=== PATIENT | male | born 1955 | race Caucasian/White ===

== ENCOUNTER 2021-01-25 04:19 | Inpatient (IN) | payer BC, MEDICARE ==
[~2021-01-25] VITALS: Ht 180.3 cm; Wt 74.8 kg
[2021-01-25] MEDS ORDERED: IV NS 0.9% 500 ML BAG IV ONE (04:30)
--- NOTE | 2021-01-25 04:30 | NUR ---
[id number]. SYNCOPAL EPISODE, NEW ONSET AFIB, HEAD TRAUMA W/ LACERATION LIP ABRASION. PT ALERT AND ORIENTED X3. AMBULATORY WITH NON LABORED BREATHING. PATIENT PLACED ON A MONITOR.
--- NOTE | 2021-01-25 04:35 | NUR ---
BLOOD COLLECTED AND SENT TO LAB
--- NOTE | 2021-01-25 04:36 | NUR ---
URINE COLLECTED AND SENT TO LAB
[2021-01-25 04:44] LABS: BASOPHILS % (AUTO) 0.3 % (0.0-2.0); EOSINOPHILS % (AUTO) 3.6 % (0.0-6.0); HEMATOCRIT 40 % (39-51); HEMOGLOBIN 13.6 g/dL (13.5-17.5); LYMPHOCYTES # (AUTO) 2.4 K/uL (0.8-4.8); LYMPHOCYTES % (AUTO) 28.7 % (20.0-44.0); MEAN CORPUSCULAR HGB CONC 34 g/dl (31.0-36.0); MEAN CORPUSCULAR VOLUME 89 fL (80-96); MONOCYTES # (AUTO) 0.5 K/uL (0.1-1.30); MONOCYTES % (AUTO) 6.4 % (2.0-12.0); NEUTROPHILS # (AUTO) 5.2 K/uL (1.8-8.9); PLATELET COUNT (AUTO) 206 K/uL (150-450); RED BLOOD CELL COUNT(AUTO) 4.43 MIL/uL (4.5-6.0); WHITE BLOOD COUNT (AUTO) 8.5 K/uL (4.3-11.0)
--- NOTE | 2021-01-25 04:54 | NUR ---
PATIENT GOING TO CT
[2021-01-25] MEDS ORDERED: TDAP [DIPH/PERTUSSIS/TET] 0.5 ML VIAL IM ONE ×2 (05:00→05:05)
--- NOTE | 2021-01-25 05:01 | NUR ---
PT BACK FROM CT
[2021-01-25 05:03] LABS: ALANINE AMINOTRANSFERASE 32 U/L (12-78); ALBUMIN 3.8 g/dL (3.4-5.0); ALKALINE PHOSPHATASE 86 U/L (46-116); ASPARTATE AMINOTRANSFERASE 23 U/L (15-37); BILIRUBIN,DIRECT 0.1 mg/dL (0.0-0.2); BILIRUBIN,TOTAL 0.4 mg/dL (0.2-1.0); CALCIUM, SERUM 8.9 mg/dL (8.5-10.1); CARBON DIOXIDE 26 mmol/L (21-32); CHLORIDE 105 mmol/L (98-107); CREATININE 1.3 mg/dL (0.6-1.3); GLUCOSE 157 mg/dL (74-106); POTASSIUM 3.3 mmol/L (3.5-5.1); SODIUM SERUM 141 mmol/L (136-145); TOTAL PROTEIN, SERUM 7.2 g/dL (6.4-8.2); UREA NITROGEN, BLOOD 24 mg/dL (7-18)
[2021-01-25] MEDS ORDERED: ASPIRIN 325 MG TABLET ONE (05:26)
[2021-01-25] MEDS ORDERED: ASPIRIN 325 MG TABLET PO ONE (05:30)
[2021-01-25] MEDS ORDERED: ZOLPIDEM TARTRATE 5 MG TABLET PO PRN (07:00)
[2021-01-25] MEDS ORDERED: IV NS 0.9% 1,000 ML IV ONE (07:00)
[2021-01-25] MEDS ORDERED: Z GUARD REMEDY 2 OZ OINT TP PRN (07:00)
[2021-01-25] MEDS ORDERED: MAG HYDROX/AL HYDROX/SIMETH 30 ML UDC PO PRN (07:00)
[2021-01-25] MEDS ORDERED: ACETAMINOPHEN 325 MG TABLET PO PRN (07:00)
[2021-01-25] MEDS ORDERED: ONDANSETRON HCL/PF 4 MG/2 ML VIAL IVP PRN (07:00)
[2021-01-25] MEDS ORDERED: MAGNESIUM HYDROXIDE 30 ML UDC PO PRN (07:00)
[2021-01-25] MEDS ORDERED: POTASSIUM CHLORIDE 20 MEQ TAB.PRT.SR PO ONE (07:30)
[2021-01-25] MEDS ORDERED: GINKGO (07:41)
[2021-01-25] MEDS ORDERED: IRBE150T28 PO (07:41)
[2021-01-25] MEDS ORDERED: LYSINE (07:41)
[2021-01-25] MEDS ORDERED: HYDR12.55 PO (07:41)
--- NOTE | 2021-01-25 08:10 | NUR ---
Room 323-1
--- NOTE | 2021-01-25 08:51 | NUR ---
REPORT GIVEN TO NURSE METCALF
--- NOTE | 2021-01-25 09:10 | NUR ---
THE PATIENT IS TRANSFERED TO ROOM 323-1 IN STABLE CONDITION AND PER POLICY.
--- NOTE | 2021-01-25 10:00 | NUR ---
RN NOTES PATIENT ADMITTED FROM ER. A/O X4 ROOM AIR, NO DISTRESS NOTED, BREATHING EVEN AND UNLABORED. 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 NO COMPLAIN OF PAIN OR DISCOMFORT. IV LEFT FOREARM 18G, INTACT AND PATENT. AMBULATORY/ STEADY.TAUGHT PATIENT HOW TO USE CALL LIGHT. SAFETY MEASURES IN PLACE, BED LOWER POSITION, CALL LIGHT AND BELONGINGS WITHIN REACH.
[2021-01-25 11:12] VITALS: BP 146/88
[2021-01-25 11:42] LABS: PHOSPHORUS 2.8 mg/dL (2.5-4.9)
[2021-01-25 16:00] VITALS: BP 134/86
[2021-01-25] MEDS: APIXABAN 5 MG TABLET PO SCH (18:19)
--- NOTE | 2021-01-25 18:57 | NUR ---
RN CLOSING NOTES PATIENT AWAKE IN BED RESTING. A/O X4 ROOM AIR,BREATHING EVEN AND UNLABORED, NO DISTRESS NOTED. 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 NO COMPLAIN OF PAIN OR DISCOMFORT. IV LEFT FOREARM 18G, INTACT AND PATENT. AMBULATORY/ STEADY. SAFETY MEASURES IN PLACE, BED IN LOW AND LOCK POSITION, CALL LIGHT AND BELONGINGS WITHIN REACH. WILL ENDORSE TO DISTRICT ENGINEER.
--- NOTE | 2021-01-25 19:40 | NUR ---
telephone maintenance mechanic opening notes Received Pt from morning nurse. Pt is sitting in bed comfortably accompanied by family. Pt is alert and orientedX4. Respiration is normal in room air. No SOB. No S/S of distress notes. IV site at LFA# 18 is clean, intact, flushes well and SL. tele monitor showed SR hr at 63. Safety precautions is maintained. Bed at low position, brakes locked, side rails upX2 and call light is within reach. Will continue to monitor.
[2021-01-25 20:00] VITALS: BP_SYST 149; BP_DIAS 82; BP_DIAS 87
--- NOTE | 2021-01-25 23:00 | NUR ---
RN notes Pt refused to have SCD decomp. device. Explained risks and benefits. Pt keep refusing. Pt stated " I'm fine". will continue to monitor.
--- NOTE | 2021-01-25 23:35 | NUR ---
RN notes Collected UA specimen from Pt. Called lab to picker / packer the specimen.
[2021-01-26] VITALS: BP_SYST 142; BP_SYST 153; BP_SYST 154; BP_DIAS 79; BP_DIAS 87; BP_DIAS 93
--- NOTE | 2021-01-26 | NUR ---
RN notes Informed and notified MD regarding Pt's potassium today 3.3. MD ordered potassium 30 meq/po/one time. Order carried out.
--- NOTE | 2021-01-26 00:14 | NUR ---
RN notes Called internal salesperson pharmacy spoke with deja Hall to verify potassium 30 meq/po/one time.
[2021-01-26] MEDS ORDERED: POTASSIUM CHLORIDE 10 MEQ TABLET.SA PO ONE (00:30)
[2021-01-26 04:00] VITALS: BP 146/87
[2021-01-26 06:42] LABS: BILIRUBIN,URINE NEGATIVE (NEGATIVE); COLOR,URINE YELLOW (YELLOW); LEUKOCYTE ESTERASE ,URINE NEGATIVE (NEGATIVE); NITRITE, URINE NEGATIVE (NEGATIVE); PH,URINE 5.5 (5.0-8.0); PROTEIN,URINE NEGATIVE (NEGATIVE); UGLUCOSE NEGATIVE (NEGATIVE); UROBILINOGEN,URINE 0.2 EU/dL (0.2)
--- NOTE | 2021-01-26 06:55 | NUR ---
telecine operator closing notes Pt is sitting in bed comfortably watching TV. Pt is alert and orientedX4. Respiration is normal in room air. No SOB. No S/S of distress notes. VS is stable. IV site at LFA# 18 is clean, intact, flushes well and SL. tele monitor showed S david hr at 59. Kept Pt clean, dry and comfortable. All needs met and attended. Safety precautions is maintained. Bed at low position, brakes locked, side rails upX2 and call light within reach. Will endorse to am nurse for SHAHRAM.
[2021-01-26 06:59] LABS: BACTERIA,URINE Few /HPF (None Seen); RBC,URINE NONE SEEN /HPF (0-2); SQUAMOUS EPITHELIAL CELL,UR Few /HPF (None Seen); URINE AMORPHOUS URATE Many /HPF (None Seen); WBC,URINE 0-2 /HPF (0-3)
[2021-01-26 07:38] LABS: BASOPHILS % (AUTO) 0.3 % (0.0-2.0); EOSINOPHILS % (AUTO) 3.7 % (0.0-6.0); HEMATOCRIT 34 % (39-51); HEMOGLOBIN 11.8 g/dL (13.5-17.5); LYMPHOCYTES # (AUTO) 1.4 K/uL (0.8-4.8); MEAN CORPUSCULAR HGB CONC 35 g/dl (31.0-36.0); MEAN CORPUSCULAR VOLUME 89 fL (80-96); MONOCYTES # (AUTO) 0.7 K/uL (0.1-1.30); MONOCYTES % (AUTO) 9.7 % (2.0-12.0); NEUTROPHILS # (AUTO) 4.5 K/uL (1.8-8.9); NEUTROPHILS % (AUTO) 66.3 % (43.0-81.0); PLATELET COUNT (AUTO) 184 K/uL (150-450); RED BLOOD CELL COUNT(AUTO) 3.81 MIL/uL (4.5-6.0); WHITE BLOOD COUNT (AUTO) 6.8 K/uL (4.3-11.0)
--- NOTE | 2021-01-26 07:45 | NUR ---
RN OPENING NOTE PT AWAKE IN BED RESTING. ON RA WITH NO SOB OR RESPIRATORY DISTRESS. A/O X4 AND TURKMEN SPEAKING. NO COMPLAINT OF PAIN OR NAUSEA. ON BANK CONSULTANT. NO EDEMA PRESENT. SELF AMBULATORY WITH BATHROOM PRIVILEGES. LIP LACERATION PRESENT, PICTURES IN CHART, CONSULT ORDERED. IV PRESENT. ON L FA 18G AND FLUSHES WELL. SALINE LOCKED. LABS AND ORDERS REVIEWED. SAFETY MEASURES IN PLACE. SIDE RAILS RAISED. BED LOWERED. CALL LIGHT WITHIN REACH. WILL CONTINUE TO MONITOR.
[2021-01-26 08:05] LABS: CALCIUM, SERUM 8.7 mg/dL (8.5-10.1); CREATININE 1.2 mg/dL (0.6-1.3); PHOSPHORUS 2.2 mg/dL (2.5-4.9); POTASSIUM 3.9 mmol/L (3.5-5.1)
[2021-01-26] MEDS ORDERED: NEUTRA PHOS 1 POWD.PACKET PO SCH (09:00)
[2021-01-26] MEDS ORDERED: LOSARTAN POTASSIUM 50 MG TABLET PO SCH (09:00)
[2021-01-26] MEDS: APIXABAN 5 MG TABLET PO SCH (09:00)
[2021-01-26] MEDS ORDERED: DRONEDARONE HYDROCHLORIDE 400 MG TABLET PO SCH (09:00)
[2021-01-26] MEDS ORDERED: Medication Not On Formulary EA (Irbesartan (Avapro) 150 MG) PO SCH (09:00)
[2021-01-26] MEDS ORDERED: POTASSIUM CHLORIDE 20 MEQ TAB.PRT.SR PO SCH (09:00)
[2021-01-26 09:10] VITALS: BP 135/97
[2021-01-26 09:17] LABS: THYROID STIMULATING HORMONE 1.426 uIU/mL (0.358-3.74)
[2021-01-26] MEDS ORDERED: DRON400T6 PO (09:35)
[2021-01-26] MEDS ORDERED: APIX5TAB PO (09:35)
[2021-01-26] MEDS ORDERED: LOSA50TA39 PO (09:35)
[2021-01-26 10:45] VITALS: BP 130/68
--- NOTE | 2021-01-26 12:08 | NUR ---
BUSINESS AREA MANAGER NOTE PT DISCHARGED HOME. [employer] EDUCATION UTILIZED AND GIVEN TO PT. PT TO F/U WITH [facility] INSTALLER AND PCP IN [address] KELLER OFFICE GIVEN. NEW PRESCRIPTIONS VERIFIED WITH PT AND EDUCATION GIVEN. PHARMACY VERIFIED. BELONGINGS CHECKED AND GIVEN TO PT. IV LINE REMOVED. ID BAND REMOVED. PT TRANSPORTED HOME VIA PRIVATE CAR ACCOMPANIED BY FAMILY.
== END 2021-01-26 12:10 | disposition home or self-care (01) | DRG 641 ==
LOC: ER 04:21 → TELE 09:33
PROVIDERS: ADMIT Registered Nurse; ATTEND Registered Nurse
DX: E86.1 Hypovolemia (principal); I48.91 Unspecified atrial fibrillation; Z20.822 Contact with and (suspected) exposure to COVID-19; S01.91XA Laceration without foreign body of unspecified part of head, initial encounter; W18.30XA Fall on same level, unspecified, initial encounter; Y92.002 Bathroom of unspecified non-institutional (private) residence as the place of occurrence of the external cause; H81.09 Meniere's disease, unspecified ear; I10 Essential (primary) hypertension; H93.19 Tinnitus, unspecified ear; E87.6 Hypokalemia; T50.905A Adverse effect of unspecified drugs, medicaments and biological substances, initial encounter; R00.1 Bradycardia, unspecified
CPT/HCPCS: 36415; 70450-TC; 71045-TC; 80048-TC; 80061-TC; 80076-TC; 81001; 82728-TC; 82962-TC; 83540-TC; 83735-TC; 84100-TC; 84439-TC; 84443-TC; 84484-TC; 85025-TC; 85730-TC; 87081-TC; 90715; 93307-TC; 93880-TC; A6403; C9803; G0378; J7030